=== PATIENT | female | born 1990 | race African-American/Black ===

== ENCOUNTER 2019-02-25 21:31 | Emergency (ER) | payer OTHER ==
[~2019-02-25] VITALS: Ht 154.9 cm; Wt 81.7 kg
--- NOTE | ~2019-02-25 | EMS ---
[address] [address] EMS Patient Care Report Name: CATRACHITO COATS Room #: DEP SOILA Hoffmann#: [id number] Admission: 02/25/19 Attend Phys: Discharge: 02/25/19 Date of : [birth year] Report #: [id number] THIS REPORT FOR: //name// Report Transmitted: 02/26/2019 10:07 EMS Care Summary [place], [place]/[facility] Incident [id number] @ 02/25/2019 20:55 Incident Location [address] [place], [place] [id number] Patient CATRACHITO COATS Female, 28 Years 1990 Patient Address [address] [place] [address] Patient History Gallbladder Disease, Patient Allergies No known allergies, Patient Medications Tylenol, Chief Complaint right lower quad pain Disposition Transported No Lights/[place] Reason Abdominal Pain/Problems Transported To [facility] Narrative PT STATES THAT PTHAS ABDOMINAL PAIN IN PT RIGHT LOWER QUAD. PT DENIES REBOUND TENDERNESS. PT ADMITS TO VOMITING. PT DENIES ANY DIFFICULTY DEFECTING. PT STATES THAT TP WAS RECENTLY SEEN FOR THAU AND WAS TOLD THAT PT HAS PANCRITIS. PT REQUESTS PAIN MEDICATIONS BEFORE ANYTHING ELSE IS DONE. PT HAS NO OTHER [address] [address] EMS Patient Care Report Name: CATRACHITO COATS Room #: DEP KaeLola#: [id number] Admission: 02/25/19 Attend Phys: Discharge: 02/25/19 Date of : [birth year] Report #: [id number] COMPLAINTS. PT WAS FOUND LAYING ON A COUND IN THE POSITION. PT SPOKE IN FULL AND COMPLETE SENTENCES. PT IS ABLE TO STAND AND PIVOT TO GET ONTO EMS COT. PT HAS NO OTHER OBVIOUS ABNORMALITIES. Initial Vitals @21:08P: 78,R: 18,Pain: 10/10,GCS: 15,Glucose: 94,SpO2: 99, @21:15P: 126,R: 18,BP: 111/64,Pain: 10/10,GCS: 15,SpO2: 99,Revised Trauma: 12, Assessments @21:08MENTAL:Time Oriented,Event Oriented,Place Oriented,Person Oriented,SKIN:HEENT:Eyes: Right Pupil: 3-mm,Eyes: Left Pupil: 3-mm,Head/Face: No Abnormalities,Neck/Airway: No Abnormalities,LUNG SOUNDS:General: Nausea,General: Vomiting,Right Lower: Tenderness,ABDOMEN:General: Nausea,General: Vomiting,Right Lower: Tenderness,PELVIS//GI:EXTREMITIES:Capillary Refill: Right Upper: < 2 Sec,Left Arm: No Abnormalities,Right Arm: No Abnormalities,Left Leg: No Abnormalities,Right Leg: No Abnormalities,PULSE:Radial: 2+ Normal,NEURO: Impression Abdominal Pain Procedures @21:22ALS AssessmentResponse: UnchangedSucceeded@21:22Saline Lock 20cc (20 ga) Site: Hand-LeftResponse: UnchangedSucceeded Timeline 20:54,Call Received 20:54,Dispatch Notified 20:55,Dispatched 20:55,En Route 21:05,On Scene 21:06,At Patient 21:08,BP: / M,PULSE: 78,RR: 18 R,SPO2: 99 Ox,ETCO2: ,B,PAIN: 10,GCS: 15, 21:14,Depart Scene 21:15,BP: 111/64 M,PULSE: 126,RR: 18 R,SPO2: 99 Ox,ETCO2: ,BG: ,PAIN: 10,GCS: 15, 21:22,ALS Assessment,Response: UnchangedSucceeded, 21:22,Saline Lock 20cc 20 ga Site: Hand-Left,Response: UnchangedSucceeded, 21:27,At Destination 21:45,Call Closed Disclaimer [email or web address] Copyright 2019 [employer] This EMS Care Summary contains data elements from the applicable legal record [address] [address] EMS Patient Care Report Name: CATRACHITO COATS Room #: DEP SOILA Hoffmann#: [id number] Admission: 02/25/19 Attend Phys: Discharge: 02/25/19 Date of : [birth year] Report #: [id number] (which may be displayed differently). It is designed to provide pertinent information for the following purposes: continuity of care, clinical quality, and state data reporting. The complete legal record is available to ED staff and administrators of the receiving hospital in [employer]'s Patient Tracker. All data is provided "as is."
[2019-02-25 21:59] VITALS: BP 136/118
== END 2019-02-25 22:05 | disposition home or self-care (01) ==
LOC: ER 21:31
DX: R10.84 Generalized abdominal pain (principal)